=== PATIENT | female | born 1940 | race Caucasian/White ===

== ENCOUNTER 2021-03-18 17:18 | Inpatient (IN) | payer MEDICARE ==
[~2021-03-18] VITALS: Ht 175.3 cm; Wt 59.0 kg
[2021-03-18 18:32] LABS: HEMATOCRIT 44.9 % (31.2-41.9); MEAN CORPUSCULAR HEMOGLOBIN 30.7 uug (24.7-32.8); MEAN CORPUSCULAR VOLUME 92.5 fL (75.5-95.3); PLATELET COUNT (AUTO) 287 K/uL (179-408)
[2021-03-18 18:40] LABS: CARBON DIOXIDE 24 mmol/L (21-32); CHLORIDE 105 mmol/L (98-107); CREATININE 0.7 mg/dL (0.6-1.3); GLUCOSE 113 mg/dL (74-106); POTASSIUM 3.1 mmol/L (3.5-5.1); UREA NITROGEN, BLOOD 14 mg/dL (7-18)
[2021-03-18 18:53] LABS: ALANINE AMINOTRANSFERASE 38 U/L (14-59); ALKALINE PHOSPHATASE 97 U/L (50-136); ASPARTATE AMINOTRANSFERASE 27 U/L (15-37); BILIRUBIN,TOTAL 0.4 mg/dL (0.2-1.0); CREATINE KINASE, TOTAL 33 U/L (26-192); LACTATE DEHYDROGENASE 214 U/L (81-234); TOTAL PROTEIN, SERUM 7.5 g/dL (6.4-8.2)
[2021-03-18 18:57] LABS: FERRITIN 191 ng/mL (8-252)
[2021-03-18] MEDS ORDERED: IV NORMAL SALINE 250 ML IV ONE (19:13)
[2021-03-18] MEDS ORDERED: IOHEXOL 350 100 ML INFUS..BTL ONE (19:13)
[2021-03-18] MEDS ORDERED: SWABABLE VALVE TRANSFER SET EA MC ONE (19:13)
[2021-03-18] MEDS ORDERED: IV NORMAL SALINE 1000 ML BAG IV ONE (20:45)
[2021-03-18] MEDS ORDERED: ONDANSETRON 4 MG/2 ML VIAL IV ONE (21:00)
[2021-03-18] MEDS ORDERED: ONDANSETRON 4 MG/2 ML VIAL ONE (21:03)
[2021-03-18] MEDS ORDERED: ACETAMINOPHEN 325 MG TABLET ONE (22:10)
[2021-03-18] MEDS ORDERED: ACETAMINOPHEN 325 MG TABLET PO ONE (22:15)
[2021-03-19 00:06] LABS: *BILIRUBIN,URIN NEGATIVE (NEGATIVE); *CLARITY,URINE CLEAR (CLEAR); *COLOR,URINE YELLOW (YELLOW); *KETONES,URINE NEGATIVE (NEGATIVE); *UROBILINOGEN,URINE 0.2 E.U./dl (NORMAL); LEUKOCYTE ESTERASE ,URINE TRACE (NEGATIVE); NITRITE, URINE NEGATIVE (NEGATIVE); UGLUCOSE NEGATIVE (NEGATIVE)
[2021-03-19 00:13] LABS: *BLOOD, URINE TRACE (NEGATIVE)
[2021-03-19 00:14] LABS: BACTERIA,URINE FEW /HPF (NONE SEEN); SQUAMOUS EPITHELIAL CELL,UR FEW /HPF (NONE SEEN)
[2021-03-19] MEDS ORDERED: PANT40TA2 PO (00:59)
[2021-03-19] MEDS ORDERED: LOVA20TA2 PO (00:59)
[2021-03-19] MEDS ORDERED: GLIM4TAB PO (00:59)
[2021-03-19] MEDS ORDERED: METF-440 PO (00:59)
[2021-03-19] MEDS ORDERED: IV NORMAL SALINE 1000 ML BAG IV ONE (01:00)
[2021-03-19 01:10] VITALS: BP 85/47
[2021-03-19] MEDS ORDERED: ONDANSETRON 4 MG/2 ML VIAL IV PRN (01:45)
[2021-03-19] MEDS ORDERED: CEFTRIAXONE 1 G VIAL ONE (02:53)
[2021-03-19] MEDS ORDERED: ENOXAPARIN SODIUM 40 MG/0.4 ML DISP.SYRIN SQ SCH (03:39)
[2021-03-19] MEDS: CEFTRIAXONE 1 G in IV DEXTROSE 5% 50 ML IV SCH (03:42)
[2021-03-19] MEDS: IV 1/2NS 1000 ML 1,000 ML IV PRN ×2 (03:53→21:29)
[2021-03-19 05:42] VITALS: BP 90/44
[2021-03-19] MEDS: PANTOPRAZOLE SODIUM 40 MG TABLET.DR PO SCH (06:01)
[2021-03-19 06:43] LABS: HEMATOCRIT 39.9 % (31.2-41.9); MEAN CORPUSCULAR HEMOGLOBIN 30.1 uug (24.7-32.8); MEAN CORPUSCULAR VOLUME 92.8 fL (75.5-95.3); PLATELET COUNT (AUTO) 232 K/uL (179-408)
[2021-03-19 07:09] LABS: BILIRUBIN,TOTAL 0.3 mg/dL (0.2-1.0); CREATININE 0.9 mg/dL (0.6-1.3); MAGNESIUM 1.5 mg/dL (1.8-2.4); PHOSPHOROUS 4.1 mg/dL (2.5-4.9); POTASSIUM 3.7 mmol/L (3.5-5.1); TOTAL PROTEIN, SERUM 5.6 g/dL (6.4-8.2)
[2021-03-19 07:47] LABS: THYROID STIMULATING HORMONE 0.124 mIU/mL (0.358-3.740)
[2021-03-19] MEDS: MAGNESIUM SULFATE/D5W 100 ML IV SCH ×2 (10:46→12:01)
[2021-03-19 11:42] VITALS: BP 83/32
[2021-03-19 12:09] VITALS: BP 88/49
[2021-03-19 16:02] VITALS: BP 98/41
[2021-03-19 19:51] VITALS: BP 96/39
[2021-03-19] MEDS: ACETAMINOPHEN 325 MG TABLET PO PRN (22:47)
[2021-03-20 00:09] VITALS: BP 100/41
[2021-03-20] MEDS: CEFTRIAXONE 1 G in IV DEXTROSE 5% 50 ML IV SCH (02:45)
[2021-03-20 04:48] VITALS: BP 135/68
[2021-03-20] MEDS: PANTOPRAZOLE SODIUM 40 MG TABLET.DR PO SCH (06:41)
[2021-03-20 06:54] LABS: CREATININE 0.8 mg/dL (0.6-1.3); MAGNESIUM 2.6 mg/dL (1.8-2.4); POTASSIUM 3.9 mmol/L (3.5-5.1)
[2021-03-20] MEDS: ENOXAPARIN SODIUM 40 MG/0.4 ML DISP.SYRIN SQ SCH (08:35)
[2021-03-20 11:11] VITALS: BP 119/51
[2021-03-20 11:13] LABS: HEMATOCRIT 38.2 % (31.2-41.9); MEAN CORPUSCULAR HEMOGLOBIN 30.9 uug (24.7-32.8); MEAN CORPUSCULAR VOLUME 94.2 fL (75.5-95.3); PLATELET COUNT (AUTO) 216 K/uL (179-408)
[2021-03-20] MEDS: ACETAMINOPHEN 325 MG TABLET PO PRN (12:26)
[2021-03-20] MEDS: IV 1/2NS 1000 ML 1,000 ML IV PRN (12:56)
[2021-03-20] MEDS ORDERED: INSU200I4 SQ (14:19)
[2021-03-20] MEDS ORDERED: TEMA15CA PO (14:19)
[2021-03-20 15:00] VITALS: BP 101/47
[2021-03-20] MEDS ORDERED: TEMAZEPAM 15 MG CAPSULE PO PRN (18:30)
[2021-03-20 20:05] VITALS: BP 114/60
[2021-03-20] MEDS ORDERED: ATORVASTATIN 10 MG TABLET PO SCH (21:00)
[2021-03-20] MEDS ORDERED: DEXTROSE 50% 50 ML DISP.SYRIN IV PRN (21:15)
[2021-03-20] MEDS: BLOOD SUGAR DIAGNOSTIC 1 EACH STRIP VI SCH (21:15)
[2021-03-20] MEDS: INSULIN REGULAR, HUMAN 300 UNIT/3 ML VIAL SQ PRN (21:24)
[2021-03-21 00:10] VITALS: BP 130/61
[2021-03-21] MEDS: IV 1/2NS 1000 ML 1,000 ML IV PRN (00:51)
[2021-03-21] MEDS: CEFTRIAXONE 1 G in IV DEXTROSE 5% 50 ML IV SCH (03:11)
[2021-03-21 04:03] VITALS: BP_SYST 130; BP_SYST 141; BP_DIAS 50; BP_DIAS 71
[2021-03-21] MEDS: PANTOPRAZOLE SODIUM 40 MG TABLET.DR PO SCH (06:15)
[2021-03-21] MEDS: BLOOD SUGAR DIAGNOSTIC 1 EACH STRIP VI SCH ×2 (06:32→11:44)
[2021-03-21] MEDS: INSULIN REGULAR, HUMAN 300 UNIT/3 ML VIAL SQ PRN ×2 (07:36→11:45)
[2021-03-21] MEDS ORDERED: METFORMIN HCL 500 MG TABLET PO SCH (08:00)
[2021-03-21] MEDS: ENOXAPARIN SODIUM 40 MG/0.4 ML DISP.SYRIN SQ SCH (08:15)
[2021-03-21] MEDS ORDERED: GLIMEPIRIDE 4 MG TABLET PO SCH (09:00)
[2021-03-21] MEDS ORDERED: PANTOPRAZOLE SODIUM 40 MG TABLET.DR PO SCH (09:00)
[2021-03-21 11:10] VITALS: BP 117/62
[2021-03-21] MEDS: ACETAMINOPHEN 325 MG TABLET PO PRN (12:12)
[2021-03-21] MEDS ORDERED: AMOX500C2 PO (13:46)
[2021-03-22 19:06] LABS: *ANTI-SCLERODERMA-70 AB <0.2 AI (0.0-0.9); *SJOGREN'S ANTI-SS-A <0.2 AI (0.0-0.9); *SJOGREN'S ANTI-SS-B <0.2 AI (0.0-0.9); *SMITH ANTIBODIES <0.2 AI (0.0-0.9); ANTI-DNA(DS) AB, QN <1 IU/mL (0-9)
== END 2021-03-21 15:12 | disposition home health service (06) | DRG 690 ==
LOC: ER 17:19 → TELE3 03-19 00:52
PROVIDERS: ADMIT Internal Medicine; ATTEND Student in an Organized Health Care Education/Training Program
DX: N39.0 Urinary tract infection, site not specified (principal); E87.2 Acidosis; R11.2 Nausea with vomiting, unspecified; R10.9 Unspecified abdominal pain; E78.5 Hyperlipidemia, unspecified; K21.9 Gastro-esophageal reflux disease without esophagitis; E11.9 Type 2 diabetes mellitus without complications; Z79.84 Long term (current) use of oral hypoglycemic drugs; Z79.899 Other long term (current) drug therapy; Z87.440 Personal history of urinary (tract) infections; E88.09 Other disorders of plasma-protein metabolism, not elsewhere classified; Z83.3 Family history of diabetes mellitus; J32.9 Chronic sinusitis, unspecified; R91.8 Other nonspecific abnormal finding of lung field; Z90.49 Acquired absence of other specified parts of digestive tract; Z86.11 Personal history of tuberculosis; Z82.49 Family history of ischemic heart disease and other diseases of the circulatory system; R09.02 Hypoxemia; Z87.891 Personal history of nicotine dependence
CPT/HCPCS: 36415; 70030-TC; 71045; 71275; 83605; 83615; 83690; 83735; 84100; 84443; 85025; 85730; 86038; 86140; 87040; 87086; 93005; 97161; A4663; G0378; J0696; J1650; J1815; J2405; J3475; J3490; J7030; J7050; J7060; Q9967